=== PATIENT | male | born 1990 | race Caucasian/White ===

== ENCOUNTER 2022-06-20 04:22 | Outpatient (CLI) | payer SELFPAY | END 2022-06-20 23:59 | disposition EMS.NT | LOC: EMS 04:22 | DX: S30.810A Abrasion of lower back and pelvis, initial encounter (principal); V87.8XXA Person injured in other specified noncollision transport accidents involving motor vehicle (traffic), initial encounter; Y92.413 State road as the place of occurrence of the external cause ==